=== PATIENT | male | born 1995 | race African-American/Black ===

== ENCOUNTER 2022-08-18 23:09 | Inpatient (IN) | payer SELFPAY ==
[~2022-08-18] VITALS: Ht 190.5 cm; Wt 96.8 kg
[2022-08-18] MEDS ORDERED: LORazepam 2MG/ML-1ML VIAL IV ONE (23:30)
[2022-08-18 23:41] LABS: Basophils # (auto) 0.1 10 ^3/uL (0-0.2); Eosinophils # (auto) 0 10 ^3/uL (0-0.8); Nucleated Red Blood Cells % 0.1 %; White Blood Cell 16.4 10^3/uL (4.4-10.8)
[2022-08-18 23:43] LABS: Basophils % (auto) 0.7 % (0.0-2.0); Hematocrit 43.2 % (41.0-53.0); Hemoglobin 13.7 g/dL (13.5-17.5); Lymphocytes # (auto) 0.7 10 ^3/uL (0.4-5.4); Lymphocytes % (auto) 4.3 % (10.0-50.0); Mean Corpuscular Hemoglobin 25.4 pg (28.0-32.0); Mean Corpuscular Hgb Conc. 31.7 g/dL (32.0-36.0); Mean Corpuscular Volume 80.4 fL (80.0-100.0); Monocytes # (auto) 0.9 10 ^3/uL (0-1.3); Monocytes % (auto) 5.6 % (0.0-12.0); Neutrophils # (auto) 14.6 10 ^3/uL (1.6-8.6); Neutrophils % (auto) 89.4 % (37.0-80.0); Red Blood Cells 5.38 10^6/uL (4.5-5.90)
[2022-08-18 23:47] LABS: Red Cell Distribution Width 27.9 % (11.8-14.3)
[2022-08-19] MEDS ORDERED: ONDANSETRON HCL 4 MG/2 ML VIAL ONE (00:02)
[2022-08-19 00:07] LABS: Albumin 4.3 g/dL (3.4-5.0); Calcium 9.9 mg/dL (8.5-10.1); Potassium 3.9 mmol/L (3.5-5.1)
[2022-08-19 00:09] LABS: Bilirubin, Total 0.9 mg/dL (0.2-1.0); Total Protein 9.6 g/dL (6.4-8.2)
[2022-08-19 00:10] LABS: Lactic Acid w/Reflex 9.9 mmol/L (0.4-2.0)
[2022-08-19 00:41] LABS: BUN/Creatinine Ratio 5.4
[2022-08-19] MEDS ORDERED: metroNIDAZOLE 500MG/100ML 100 ML IV ONE (01:00)
[2022-08-19] MEDS ORDERED: MORPHINE SULFATE 4 MG/ML SYR/VIAL IV ONE (01:00)
[2022-08-19] MEDS ORDERED: CIPROFLOXACIN 400MG/200ML 200 ML IV ONE (01:00)
[2022-08-19] MEDS ORDERED: SODIUM CHLORIDE 0.9% 1,000 ML IV ONE ×2 (01:00→16:30)
[2022-08-19] MEDS ORDERED: ONDANSETRON HCL 4 MG/2 ML VIAL IV ONE ×2 (01:00)
[2022-08-19] MEDS ORDERED: PANTOPRAZOLE 40 MG/10 ML VIAL INJ IV ONE (01:15)
[2022-08-19 04:22] LABS: Barbiturate Scree,Urine NEGATIVE (NEGATIVE); Benzodiazephine Screen, Urine NEGATIVE (NEGATIVE)
[2022-08-19 04:31] LABS: Amphetamine Screen, Urine NEGATIVE (NEGATIVE); Cannabinoid Screen, Urine POSITIVE (NEGATIVE); Cocaine Screen, Urine POSITIVE (NEGATIVE); Opiate Scree,Urine POSITIVE (NEGATIVE); Phencyclidine Screen, Urine NEGATIVE (NEGATIVE)
[2022-08-19] MEDS: MORPHINE SULFATE INJ 2 MG/ml SYRG IV PRN ×4 (04:53→20:51)
[2022-08-19] MEDS: ONDANSETRON HCL 4 MG/2 ML VIAL IV PRN ×3 (09:17→20:58)
[2022-08-19] MEDS: cefTRIAXone 1GM/50ML D5W 50 ML IV SCH (09:47)
[2022-08-19] MEDS: SODIUM CHLORIDE 0.9% 1,000 ML IV SCH ×3 (09:56→21:15)
[2022-08-19 12:03] LABS: Eosinophils # (auto) 0 10 ^3/uL (0-0.8); Lymphocytes # (auto) 0.7 10 ^3/uL (0.4-5.4); Lymphocytes % (auto) 4.5 % (10.0-50.0); Monocytes # (auto) 0.7 10 ^3/uL (0-1.3); Monocytes % (auto) 4.5 % (0.0-12.0)
[2022-08-19 12:05] LABS: Basophils # (auto) 0 10 ^3/uL (0-0.2); Basophils % (auto) 0.3 % (0.0-2.0); Hematocrit 44.9 % (41.0-53.0); Hemoglobin 14.8 g/dL (13.5-17.5); Mean Corpuscular Hemoglobin 25.5 pg (28.0-32.0); Mean Corpuscular Volume 77.3 fL (80.0-100.0); Neutrophils # (auto) 13.5 10 ^3/uL (1.6-8.6); Neutrophils % (auto) 90.7 % (37.0-80.0); Nucleated Red Blood Cells % 0.1 %; Red Blood Cells 5.81 10^6/uL (4.5-5.90); Red Cell Distribution Width 26.9 % (11.8-14.3); White Blood Cell 14.8 10^3/uL (4.4-10.8)
[2022-08-19 12:23] LABS: Albumin 3.7 g/dL (3.4-5.0); Calcium 9.4 mg/dL (8.5-10.1); Magnesium 1.7 mg/dL (1.6-2.6); Potassium 4.6 mmol/L (3.5-5.1)
[2022-08-19 12:38] LABS: Bilirubin, Total 1.7 mg/dL (0.2-1.0); Total Protein 8.4 g/dL (6.4-8.2)
[2022-08-19] MEDS: LORazepam 2MG/ML-1ML VIAL IV PRN (13:39)
[2022-08-19] MEDS: FOLIC ACID 1 MG, MULTIPLE VITAMIN 10 ML, MAGNESIUM SULF SDV 50% 8 MEQ, THIAMINE INJ 100... INJ SCH ×5 (13:41)
[2022-08-19] MEDS: hydrALAZINE HCL 20 MG/ML VL IV PRN (14:06)
[2022-08-19] MEDS ORDERED: dilTIAZem 25 MG/5 ML VIAL IV ONE (16:15)
[2022-08-19] MEDS: chlordiazePOXIDE HCL 5 MG CAP PO PRN ×2 (16:45→22:55)
[2022-08-19] MEDS ORDERED: HALOPERIDOL LACTATE 5 MG/ML INJ VIAL IM PRN (16:45)
[2022-08-19] MEDS: METOPROLOL TARTRATE 1MG/1ML-5ML VIAL IV PRN ×2 (16:45→22:55)
[2022-08-19 22:00] VITALS: BP 167/113
[2022-08-20] MEDS: LORazepam 2MG/ML-1ML VIAL IV PRN ×3 (03:29→22:24)
[2022-08-20 05:00] VITALS: BP 166/104
[2022-08-20] MEDS: METOPROLOL TARTRATE 1MG/1ML-5ML VIAL IV PRN ×3 (05:04→18:25)
[2022-08-20 06:19] LABS: Basophils # (auto) 0.1 10 ^3/uL (0-0.2); Basophils % (auto) 0.4 % (0.0-2.0); Eosinophils # (auto) 0 10 ^3/uL (0-0.8); Hemoglobin 15.2 g/dL (13.5-17.5); White Blood Cell 18.9 10^3/uL (4.4-10.8)
[2022-08-20 06:25] LABS: Hematocrit 46.8 % (41.0-53.0); Lymphocytes # (auto) 1.4 10 ^3/uL (0.4-5.4); Lymphocytes % (auto) 7.2 % (10.0-50.0); Mean Corpuscular Hemoglobin 25.7 pg (28.0-32.0); Mean Corpuscular Hgb Conc. 32.4 g/dL (32.0-36.0); Mean Corpuscular Volume 79.3 fL (80.0-100.0); Monocytes # (auto) 1.1 10 ^3/uL (0-1.3); Neutrophils # (auto) 16.3 10 ^3/uL (1.6-8.6); Neutrophils % (auto) 86.4 % (37.0-80.0); Nucleated Red Blood Cells % 0.1 %
[2022-08-20 06:26] LABS: Red Cell Distribution Width 26.8 % (11.8-14.3)
[2022-08-20] MEDS: hydrALAZINE HCL 20 MG/ML VL IV PRN ×2 (06:36→16:14)
[2022-08-20 06:45] LABS: Albumin 3.4 g/dL (3.4-5.0); BUN/Creatinine Ratio 12.7; Calcium 9.2 mg/dL (8.5-10.1); Potassium 4.5 mmol/L (3.5-5.1)
[2022-08-20 06:57] LABS: Bilirubin, Total 1.3 mg/dL (0.2-1.0); Total Protein 8.1 g/dL (6.4-8.2)
[2022-08-20] MEDS: SODIUM CHLORIDE 0.9% 1,000 ML IV SCH ×6 (07:15→23:00)
[2022-08-20 08:00] VITALS: BP 163/96
[2022-08-20] MEDS: cefTRIAXone 1GM/50ML D5W 50 ML IV SCH (09:05)
[2022-08-20] MEDS: PANTOPRAZOLE 40 MG/10 ML VIAL INJ IV SCH (10:19)
[2022-08-20 11:52] VITALS: BP 146/104
[2022-08-20] MEDS: chlordiazePOXIDE HCL 5 MG CAP PO PRN ×2 (14:30→22:25)
[2022-08-20] MEDS: FOLIC ACID 1 MG, MULTIPLE VITAMIN 10 ML, MAGNESIUM SULF SDV 50% 8 MEQ, THIAMINE INJ 100... INJ SCH ×5 (14:43)
[2022-08-20] MEDS: MORPHINE SULFATE INJ 2 MG/ml SYRG IV PRN ×2 (15:43→21:22)
[2022-08-20 16:00] VITALS: BP 165/105
[2022-08-20 21:17] VITALS: BP 170/94
[2022-08-20] MEDS: ONDANSETRON HCL 4 MG/2 ML VIAL IV PRN (21:22)
[2022-08-20 22:00] VITALS: BP 170/94
[2022-08-21] VITALS (7 sets, daily range): BP systolic 142–173; BP diastolic 66–91
[2022-08-21] MEDS: SODIUM CHLORIDE 0.9% 1,000 ML IV SCH ×8 (01:01→23:15)
[2022-08-21] MEDS: METOPROLOL TARTRATE 1MG/1ML-5ML VIAL IV PRN (02:48)
[2022-08-21] MEDS: MORPHINE SULFATE INJ 2 MG/ml SYRG IV PRN ×2 (03:38→09:29)
[2022-08-21] MEDS: ONDANSETRON HCL 4 MG/2 ML VIAL IV PRN (03:38)
[2022-08-21 05:51] LABS: Eosinophils # (auto) 0 10 ^3/uL (0-0.8); Hemoglobin 11.8 g/dL (13.5-17.5); Neutrophils # (auto) 12.9 10 ^3/uL (1.6-8.6); Nucleated Red Blood Cells % 0.1 %
[2022-08-21 05:54] LABS: Basophils # (auto) 0 10 ^3/uL (0-0.2); Basophils % (auto) 0.3 % (0.0-2.0); Hematocrit 36.4 % (41.0-53.0); Lymphocytes # (auto) 1.4 10 ^3/uL (0.4-5.4); Lymphocytes % (auto) 9.2 % (10.0-50.0); Mean Corpuscular Hgb Conc. 32.3 g/dL (32.0-36.0); Mean Corpuscular Volume 80.3 fL (80.0-100.0); Monocytes # (auto) 1.1 10 ^3/uL (0-1.3); Monocytes % (auto) 7.1 % (0.0-12.0); Neutrophils % (auto) 83.4 % (37.0-80.0); Red Blood Cells 4.54 10^6/uL (4.5-5.90); White Blood Cell 15.5 10^3/uL (4.4-10.8)
[2022-08-21 06:14] LABS: Albumin 2.4 g/dL (3.4-5.0); Calcium 8.1 mg/dL (8.5-10.1); Magnesium 2.1 mg/dL (1.6-2.6)
[2022-08-21 06:16] LABS: Red Cell Distribution Width 26.2 % (11.8-14.3)
[2022-08-21 06:23] LABS: Bilirubin, Total 0.9 mg/dL (0.2-1.0); Total Protein 6.5 g/dL (6.4-8.2)
[2022-08-21] MEDS: hydrALAZINE HCL 20 MG/ML VL IV PRN ×2 (06:30→08:37)
[2022-08-21 07:54] LABS: BUN/Creatinine Ratio 14.8
[2022-08-21] MEDS: PANTOPRAZOLE 40 MG/10 ML VIAL INJ IV SCH (09:28)
[2022-08-21] MEDS: cefTRIAXone 1GM/50ML D5W 50 ML IV SCH (09:28)
[2022-08-21] MEDS ORDERED: LORazepam 2MG/ML-1ML VIAL IV PRN (11:15)
[2022-08-21] MEDS ORDERED: MORPHINE SULFATE INJ 2 MG/ml SYRG IV PRN (11:15)
[2022-08-21] MEDS ORDERED: chlordiazePOXIDE HCL 5 MG CAP PO PRN (11:15)
[2022-08-21] MEDS: FOLIC ACID 1 MG, MULTIPLE VITAMIN 10 ML, MAGNESIUM SULF SDV 50% 8 MEQ, THIAMINE INJ 100... INJ SCH ×5 (12:38)
[2022-08-22 05:00] VITALS: BP 150/78
[2022-08-22] MEDS: SODIUM CHLORIDE 0.9% 1,000 ML IV SCH ×5 (06:53→19:15)
[2022-08-22 07:02] LABS: Hemoglobin 10.8 g/dL (13.5-17.5); Red Blood Cells 4.15 10^6/uL (4.5-5.90)
[2022-08-22 07:04] LABS: Hematocrit 33.6 % (41.0-53.0); Mean Corpuscular Hgb Conc. 32.2 g/dL (32.0-36.0); Mean Corpuscular Volume 80.9 fL (80.0-100.0); White Blood Cell 13.3 10^3/uL (4.4-10.8)
[2022-08-22 07:24] LABS: Red Cell Distribution Width 25.4 % (11.8-14.3)
[2022-08-22 07:26] LABS: Basophils % (manual) 0 (0.0-2.0); Blast Cells 0; Eosinophils % (manual) 0 (0-7); Metamyelocytes % 0; Promyelocytes % 0; Reactive Lymphocytes 0
[2022-08-22 07:30] LABS: Potassium 3.6 mmol/L (3.5-5.1)
[2022-08-22 07:42] LABS: Albumin 2.5 g/dL (3.4-5.0); BUN/Creatinine Ratio 10.2; Bilirubin, Total 0.9 mg/dL (0.2-1.0); Calcium 8.2 mg/dL (8.5-10.1); Magnesium 2.2 mg/dL (1.6-2.6); Total Protein 6.5 g/dL (6.4-8.2)
[2022-08-22 08:00] VITALS: BP 164/78
[2022-08-22] MEDS: hydrALAZINE HCL 20 MG/ML VL IV PRN ×3 (08:53→21:00)
[2022-08-22] MEDS: cefTRIAXone 1GM/50ML D5W 50 ML IV SCH (08:54)
[2022-08-22] MEDS: PANTOPRAZOLE 40 MG/10 ML VIAL INJ IV SCH (09:42)
[2022-08-22] MEDS: ONDANSETRON HCL 4 MG/2 ML VIAL IV PRN ×2 (11:22→16:20)
[2022-08-22 11:43] LABS: Band Neutrophils % (manual) 24; Lymphocytes % (manual) 7 (10.0-50.0); Monocytes % (manual) 6 (0-12); Myelocytes % 2
[2022-08-22] MEDS ORDERED: FOLIC ACID 1 MG TAB PO ONE (11:45)
[2022-08-22] MEDS ORDERED: MULTIPLE VITAMIN TAB PO ONE (11:45)
[2022-08-22] MEDS ORDERED: THIAMINE HCL 100 MG TAB PO ONE (11:45)
[2022-08-22] MEDS ORDERED: MORPHINE SULFATE INJ 2 MG/ml SYRG IV PRN (11:45)
[2022-08-22] MEDS ORDERED: LORazepam 2MG/ML-1ML VIAL IV PRN (11:45)
[2022-08-22 11:52] VITALS: BP 164/88
[2022-08-22 16:00] VITALS: BP 154/83
[2022-08-22 20:00] VITALS: BP 156/95
[2022-08-22] MEDS ORDERED: chlordiazePOXIDE HCL 5 MG CAP PO PRN (21:00)
[2022-08-22 22:00] VITALS: BP 156/95
[2022-08-23 05:00] VITALS: BP 154/92
[2022-08-23] MEDS: SODIUM CHLORIDE 0.9% 1,000 ML IV SCH (05:15)
[2022-08-23] MEDS: hydrALAZINE HCL 20 MG/ML VL IV PRN (05:20)
[2022-08-23 08:00] VITALS: BP 164/78
[2022-08-23 09:00] VITALS: BP 160/81
[2022-08-23] MEDS: PANTOPRAZOLE 40 MG/10 ML VIAL INJ IV SCH (09:57)
[2022-08-23] MEDS ORDERED: FOLIC ACID 1 MG TAB PO SCH (10:00)
[2022-08-23] MEDS ORDERED: THIAMINE HCL 100 MG TAB PO SCH (10:00)
[2022-08-23] MEDS ORDERED: MULTIPLE VITAMIN TAB PO SCH (10:00)
[2022-08-23] MEDS ORDERED: MULTTAB99 GT (10:56)
[2022-08-23] MEDS ORDERED: FOLI1TAB6 PO (10:56)
[2022-08-23] MEDS ORDERED: THIA100T5 PO (10:56)
[2022-08-23 12:02] VITALS: BP 154/95
[2022-08-23 13:25] VITALS: BP 147/89
== END 2022-08-23 13:20 | disposition home or self-care (01) | DRG 439 ==
LOC: ER 23:09 → OVERFLOW 08-19 01:17 → TELE-CENTR 08-19 19:00
PROVIDERS: ADMIT Nurse Practitioner; ATTEND Internal Medicine Geriatric Medicine
DX: K85.20 Alcohol induced acute pancreatitis without necrosis or infection (principal); E87.1 Hypo-osmolality and hyponatremia; N17.9 Acute kidney failure, unspecified; F10.229 Alcohol dependence with intoxication, unspecified; D64.9 Anemia, unspecified; F12.90 Cannabis use, unspecified, uncomplicated; Z20.822 Contact with and (suspected) exposure to COVID-19
CPT/HCPCS: 36415; 74176; 80053; 80061; 80307; 80320; 83605; 83690; 83735; 85007; 85025; 85027; 87040; 87426; 96374; 96375; C9113; G0378; J0696; J2405; J3490